=== PATIENT | female | born 1985 | race Caucasian/White ===

== ENCOUNTER 2019-03-30 05:08 | Inpatient (IN) ==
--- NOTE | 2019-03-27 18:08 | History & Physical Report ---
Date of Service March 27, 2019 Assessment & Plan (1) H/O section: Plan for repeat low transverse section. We will additionally perform bilateral tubal ligation. I have consented the patient in the office, reviewed risks benefits and alternatives. We discussed risk of failure of tubal ligation of 2-3 per thousand. Discussed tubal regret, risk of ectopic . Risks of surgery were discussed, including bleeding, scarring, infection, damage to surrounding tissues including baby. Possibility of need for blood transfusion. Risk of pulmonary complications and blood clots. (2) : History of Present Illness Chief Complaint: Repeat section Primary Care Provider: NO PCP Patient is a 33-year-old -0-1-1 with estimated delivery date 04/06/2019. She has a history of section x1, and desire for repeat. She is Rh-, and received RhoGam 01/22/2019. otherwise complicated by transfer of care at 32 weeks from [place]. Her cystic fibrosis and spinal muscular atrophy testing were negative, and cell free DNA was negative. She is surgical history of section, hernia repair, laparoscopy, wisdom teeth removal.. Allergies Allergy/AdvReac Type Severity Reaction Status Date / Time promethazine [From Phenergan] Allergy Intermediate stiff Verified 03/20/19 08:54 joints Home Medications Home Medications Medication Instructions Recorded Confirmed Type cetirizine 10 mg tablet 10 mg PO DAILY 02/11/19 03/27/19 History prenat.vits,gala,zrk-xjaz-nuuhx 1 tab PO DAILY 02/11/19 03/27/19 History ondansetron HCl 4 mg tablet 4 mg PO TID PRN 5 Days #20 tab 03/20/19 03/27/19 Rx Patient History Medical History (Updated 02/11/19 @ 13:46 by Eusebia [place] Social) Anxiety Asthma Hx of endometriosis Ovarian cyst Pain in female genitalia on intercourse Pelvic pain Surgical History (Updated 02/11/19 @ 13:55 by Eusebia Stewart[employer] Social) H/O section H/O hernia repair H/O laparoscopy [place] teeth removed Family History (Updated 02/11/19 @ 13:54 by Eusebia Silk) Father Diabetes Dyslipidemia Hypertension Mother Ovarian cyst Sister Ovarian cyst Grandmother (Maternal) Ovarian cyst Grandfather (Paternal) Drinking problem Social History (Updated 02/11/19 @ 13:33 by Eusebia Spotts) marital status: marital status details: Bertram (34) [phone] Current Living Situation: Spouse and Family Current Living Situation Comment: lives with and children, no pets 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 Nothing on palms and soles. Constitutional: WD/WN, vitals as above Respiratory: normal respiratory effort, lungs clear to auscultation no respiratory distress Cardiovascular: Rate/Rhythm: regular rate and regular rhythm Gastrointestinal (Abdomen): Inspection/Auscultation: abdomen normal to inspection Percussion/Palpation: abdomen soft; abdomen nontender Gravid. No s/s chorio or abruption. Skin: no rashes, warm and dry Psychiatric: A+Ox3, euthymic affect Monitoring External Monitor heart rate positive by Doppler in office. Please see labor and delivery charting for up to date heart tracing.
[2019-03-30] MEDS ORDERED: LACTATED RINGER'S 1,000 ML IV SCH ×2 (05:15→10:00)
[2019-03-30] MEDS ORDERED: PATIENT'S HEIGHT AND/OR WEIGHT NEEDED SCH (05:15)
[2019-03-30] MEDS ORDERED: CEFAZOLIN 2,000 MG in SYRINGE 0 ML IV SCH (06:00)
[2019-03-30] MEDS ORDERED: CITRIC ACID/SODIUM CITRATE 15 ML UDC PO SCH (06:00)
[2019-03-30 07:08] LABS: Hematocrit (blood only) 32.5 % (37-47); Hemoglobin 10.8 g/dL (12.0-16.0); Mean Corpuscular Hemoglobin 29.3 pg (25-34); Mean Corpuscular Hgb Conc 33.2 g/dL (32-36); Mean Corpuscular Volume 88.3 fL (80-100); RDW Coefficient of Variation 14.5 % (11.5-14.5); Red Blood Count 3.68 M/uL (4.2-5.4); White Blood Count 9.29 K/uL (4.8-10.8)
--- NOTE | 2019-03-30 07:11 | Anesthesiology Consultation ---
Date of Service March 30, 2019 Assessment & Plan Chart Review Chart Review: Acceptable Risk for Surgery and Patient NOT seen in Pre Admission Testing Consults Requested none ASA ASA2 Proposed Anesthesia Anesthesia Type: General and Spinal Risk / Benefits Reviewed With: PT / POA / Parent / Guardian, Accepts Plan and Informed Consent Obtained History Surgery Operation Date: 03/30/19 07:30 Proposed Procedures p Section in [place] - Lawanda Farris DO s Post Tubal Ligation Labor & Deliv - Lawanda Farris DO Height/Weight Height: 5 ft 2 in Weight: 64.864 kg Allergies Allergy/AdvReac Type Severity Reaction Status Date / Time promethazine [From Phenergan] Allergy Intermediate stiff Verified 03/30/19 05:25 joints Medications Home Medications Medication Instructions Recorded Confirmed Last Taken cetirizine 10 mg tablet 10 mg PO DAILY 02/11/19 03/30/19 Unknown prenat.vits,agla,met-mhut-bogfl 1 tab PO DAILY 02/11/19 03/30/19 03/29/19 ondansetron HCl 4 mg tablet 4 mg PO TID PRN 5 Days #20 tab 03/20/19 03/30/19 03/30/19 Active Medications Generic Name Dose Route Start Last Admin Trade Name Freq PRN Reason Stop Dose Admin Lactated Ringer's 1,000 mls @ 999 mls/hr 03/30/19 05:15 03/30/19 06:39 Lr IV 03/30/19 12:00 Infused .Q1H1M EARL Infusion NPO Date Last Intake of Fluids: 03/29/19 Time Last Intake of Fluids: 23:30 Date Last Intake of Solids: 03/29/19 Time Last Intake of Solids: 22:00 Past Medical History Medical History Anxiety no current meds Asthma childhood Hx of endometriosis Ovarian cyst Pain in female genitalia on intercourse Pelvic pain Spontaneous 2012 Exercise / Class Metabolic Activity II 4-5 Yardwork/Stairs/Walk up hill Past Family History Family History Father Diabetes Dyslipidemia Hypertension Mother Ovarian cyst Sister Ovarian cyst Grandmother (Maternal) Ovarian cyst Grandfather (Paternal) Drinking problem Past Surgical History Surgical History H/O section 09/09/2009 [facility], PROM and [facility] H/O hernia repair age 13 H/O laparoscopy age 18 History of colposcopy 2008, hx of abnormal pap [place] teeth removed 2011 Past Anesthesia History No Hx of Anesthesia Complications and No Family Hx of Anesthesia Complications History of PONV No Hx of Motion Sickness and History of PONV Social History Smoking Status: Never smoker Hx Alcohol Use: No Hx Substance Use: No Physical Exam Vital Signs Last Vital Signs Temp 36.5 C 03/30/19 05:27 Pulse 84 03/30/19 05:27 Resp 20 03/30/19 05:27 BP 118/65 03/30/19 05:27 Constitutional not obese ENMT Mouth: + small oral opening; no dentition abnormality Thyromental Distance: < 3.5 Finger Breadths Mallampati Class: II Neck normal visual inspection and trachea midline; neck extension not limited Respiratory normal respiratory effort Auscultation: lungs clear to auscultation bilaterally Cardiovascular Rate/Rhythm: regular rate and regular rhythm Heart Sounds: no murmur Vessels: no carotid bruit Musculoskeletal Spine: lumbar spine normal to inspection; normal cervical ROM Neurologic moves all extremities Motor/Sensory: no sensory deficit Psychiatric Orientation: alert and oriented x 3
[2019-03-30 07:12] LABS: Basophils # (auto) 0.01 K/uL (0-0.2); Basophils % (auto) 0.1 %; Eosinophils # (auto) 0.09 K/uL (0-0.5); Immature Granulocytes # (auto) 0.03 K/uL (0.00-0.02); Immature Granulocytes % (auto) 0.3 %; Lymphocytes # (auto) 1.46 K/uL (1.2-3.4); Lymphocytes % (auto) 15.7 %; Mean Platelet Volume 12.5 fL (7.4-10.4); Monocytes # (auto) 0.76 K/uL (0.11-0.59); Monocytes % (auto) 8.2 %; Neutrophils # (auto) 6.94 K/uL (1.4-6.5); Neutrophils % (auto) 74.7 %; Platelet Count 89 K/uL (130-400); Platelet Estimate Decreased (Normal)
[2019-03-30] MEDS ORDERED: OXYTOCIN 10 UNITS/ML VIAL ONE ×2 (07:16→08:44)
[2019-03-30] MEDS ORDERED: fentaNYL citrate 100 MCG/2 ML VIAL ONE (07:18)
[2019-03-30] MEDS ORDERED: MoRPHine SULFATE PF 1 MG/ML 10 ML AMP/VIAL ONE (07:19)
--- NOTE | 2019-03-30 07:31 | History & Physical Bridge Note ---
Date of Service March 30, 2019 History & Physical Bridge Note I have examined the patient, reviewed the History & Physical and in the interval since the performance of the History & Physical I have noted the following changes of clinical significance: no changes noted
[2019-03-30] MEDS ORDERED: ONDANSETRON INJ 2 MG/ML 2 ML VIAL ONE (08:37)
[2019-03-30] MEDS ORDERED: DEXAMETHASONE SOD INJ 4 MG/ML VIAL ONE (08:38)
[2019-03-30] MEDS ORDERED: PHENYLEPHRINE 100MCG/ML 5ML SYR ONE (08:44)
[2019-03-30] MEDS ORDERED: MIDAZOLAM HCL 1 MG/ML 2ML VIAL ONE ×2 (09:08→09:19)
[2019-03-30 09:10] LABS: Base Excess Cord Arterial Bld -1.7 mEq/L (-9-1.8); CO2 Cord Arterial Blood 50 mmHg (39.1-73.5); HCO3 Cord Arterial Blood 25 mmol/L (19.7-28.5); pH Cord Arterial Blood 7.32 (7.1-7.38)
[2019-03-30 09:15] LABS: Base Excess Cord Venous Blood -0.6 mEq/L (-7.7-1.9); Cord Venous Blood HCO3 24 mmol/L (18.4-26.8); Cord Venous Blood PCO2 39 mmHg (30.4-57.2); Cord Venous Blood PO2 23 mmHg (14.1-43.3); Oxygen Sat Cord Arterial Blood < 60.0 % (<60)
[2019-03-30 09:16] LABS: O2 Saturation Cord Venous Bld < 60.0 % (<68)
[2019-03-30] MEDS ORDERED: ONDANSETRON INJ 2 MG/ML 2 ML VIAL IV PRN ×2 (09:44→10:00)
[2019-03-30] MEDS ORDERED: NALOXONE HCL 0.08 MG in SYRINGE 1.8 ML IV PRN (09:44)
[2019-03-30] MEDS ORDERED: ePHEDrine sulfate 50 MG/ML AMP IV PRN (09:44)
[2019-03-30] MEDS ORDERED: NALOXONE HCL 0.4 MG/1 ML VIAL/CARP IV PRN (09:44)
[2019-03-30] MEDS ORDERED: LACTATED RINGER'S 500 ML IV PRN (09:44)
[2019-03-30] MEDS ORDERED: NALBUPHINE HCL INJ 10 MG/ML AMP IV PRN (09:44)
[2019-03-30] MEDS ORDERED: MoRPHine SULFATE PF 1 MG/ML 10 ML AMP/VIAL INT SPINAL ONE (09:44)
[2019-03-30] MEDS ORDERED: NALOXONE HCL 1 MG in SODIUM CHLORIDE 0.9% 1000ML 1,000 ML IV PRN (09:44)
[2019-03-30] MEDS ORDERED: DiphenhydrAMINE HCL 50 MG/ML VIAL IV PRN (09:44)
[2019-03-30] MEDS ORDERED: NO NARCOTICS OR SEDATIVES SCH (09:45)
[2019-03-30] MEDS ORDERED: SODIUM CHLORIDE 0.9% 1000ML 1,000 ML IV SCH (09:45)
[2019-03-30] MEDS ORDERED: DC INTRASPINAL MORPHINE SCH (09:45)
--- NOTE | 2019-03-30 09:53 | Operative Report ---
PG Post Operative Report Pre & Post Diagnosis Operation Date: 03/30/19 07:30 Pre-Op Diagnosis: intrauterine history of section desires permanent sterilization Post-Op Diagnosis: same I identified the patient and participated in the time-out.: Yes Procedure Operation Date: 03/30/19 07:30 Actual Procedures p Repeat low transverse Section for viable male at 0824 - Lawanda Farris DO s Post Tubal Ligation Labor & Deliv(Bilateral) - Lawanda Farris DO Surgeon Lawanda Farris DO Transportation [employer] Internship Gutierrez Hoffman MD Estimated Blood Loss 700 Findings Consistent with Post-Op Diagnosis Viable male , Apgars . Normal appearing tubes/ovaries. Uterus with thin wall at site of prior hysterotomy, with a 3cm blood clot in perivesical space. Specimens Placenta, cord gas, cord blood Drains reyes, clear yellow Anesthesia Type Spinal Complications none Disposition Accompanied Patient To Recovery: Yes Disposition: L&D Indications 33yo @ 39 0/7, h/o x 1, desire for repeat. Desire for sterilization. Description of Procedure The patient was seen in the preoperative holding area, where risks benefits and alternatives to surgery reviewed. All questions were answered. She elected to proceed with the case. She had previously signed informed consent under no duress in the office. She was taken to the operating room, spinal anesthesia was given. She was prepared and draped in the usual sterile fashion in the supine position with a leftward tilt. 2 g of Ancef was infused prior to incision. Timeout was confirmed. Through her prior Pfannenstiel incision, the skin incision was made with a scalpel, and carried through to the underlying layer of fascia. This was nicked at midline, and this incision was extended bilaterally sharply and bluntly. The superior aspect of the fascial incision was grasped with [place] clamps x2, elevated off the underlying rectus abdominis muscles, and dissected bluntly and sharply. In a similar fashion, the inferior aspect fascial incision was dissected. The rectus abdominis muscles were midline using a hemostat, and the peritoneum was entered bluntly digitally. This incision was extended bilaterally. The bladder blade was placed. At this time, a blood clot located in the bladder flap was visualized. Therefore, the hysterotomy incision was made superior to this on the uterus. The hysterotomy incision was made with a scalpel, and extended bilaterally bluntly. There was clear amniotic fluid. The infant was delivered from a cephalic presentation. The head delivered, followed by anterior than posterior shoulder, followed by body. A cry was heard on the field, the cord was doubly clamped and cut and the baby was handed off to the waiting implementation engineer. The placenta was delivered spontaneously intact. The uterus was exteriorized, and cleared of all clots and debris. The prior hysterotomy incision scar was inspected, found to be intact but thin. The blood clot that had been seen in the perivesical space, appeared to be hemostatic. The hysterotomy incision was reapproximated using 0 Vicryl in a running locked stitch. Another layer of the same suture was used to imbricate this incision. Multiple yxryxd-ha-rmulo sutures were used at the left hysterotomy apex to obtain hemostasis. Additionally, on the anterior surface on the right side of the uterus, there was a bleeding sinus approximately 1 cm superior to the hysterotomy incision. This required multiple vwbysf-st-mwmlo sutures of 0 Vicryl, 2-0 Vicryl, and 0 Monocryl to obtain hemostasis. The posterior uterus was evaluated and found to be normal. The uterus was placed back in the abdomen, a piece of Gelfoam was placed across the anterior aspect of the uterus and the hysterotomy. Excellent hemostasis was observed at the time of placing uterus into the abdomen. Gutters were cleared of clots and debris. The fascial incision was reapproximated using 0 Vicryl in a running stitch. The subcutaneous tissue was irrigated and reapproximated using a running stitch of 2-0 plain gut suture. The skin was reapproximated using 4-0 Vicryl in a running subcuticular stitch. Steri-Strips and a bandage were applied. Patient tolerated the procedure well. Sponge, instrument, needle counts were correct x2 at the conclusion of the case. I attest to the content of the Intraoperative Record and any orders documented therein. Any exceptions are noted below.
[2019-03-30] MEDS ORDERED: HYDROCORTISONE ACETATE 25 MG SUPP PR PRN (10:00)
[2019-03-30] MEDS ORDERED: SUPERCREAM 0.870% 15 GM JAR EXT PRN (10:00)
[2019-03-30] MEDS ORDERED: MAGNESIUM HYDROXIDE SUSP 30 ML UDC PO PRN (10:00)
[2019-03-30] MEDS ORDERED: SENNA 8.6 MG TAB PO PRN (10:00)
[2019-03-30] MEDS ORDERED: OXYTOCIN 30 UNITS in LACTATED RINGER'S 1,000 ML IV SCH (10:00)
[2019-03-30] MEDS ORDERED: BENZOCAINE 20% AER SPR 82.5 GM CAN EXT PRN (10:00)
[2019-03-30] MEDS ORDERED: DIPHTHERIA/TETANUS/PERTUSSIS 0.5 ML SYR/VIAL IM ONE (10:00)
--- NOTE | 2019-03-30 11:27 | Anesthesiology Progress Note ---
Date of Service March 30, 2019 Anesthesia Post Procedure Vital Signs Vital Signs: Temp Pulse Resp BP Pulse Ox 03/30/19 11:24 94 H 97/68 L 98 03/30/19 11:19 88 98 03/30/19 11:14 91 H 98 03/30/19 11:13 92 H 106/68 03/30/19 11:09 94 H 98 03/30/19 11:04 91 H 98 03/30/19 11:03 87 113/57 L 03/30/19 10:59 91 H 99 03/30/19 10:54 87 115/59 L 98 03/30/19 10:49 88 123/58 L 98 03/30/19 10:45 18 03/30/19 10:44 86 98 03/30/19 10:39 91 H 99 03/30/19 10:34 91 H 119/53 L 99 03/30/19 10:29 84 99 03/30/19 10:25 81 132/57 L 03/30/19 10:24 85 99 03/30/19 10:19 83 100 03/30/19 10:15 18 03/30/19 10:14 86 105/69 99 03/30/19 10:09 78 99 03/30/19 10:05 20 03/30/19 10:04 75 111/62 100 03/30/19 09:59 69 97 03/30/19 09:55 20 03/30/19 09:54 67 109/69 100 03/30/19 09:49 73 100 03/30/19 09:45 36.3 C L 20 03/30/19 09:44 70 102/60 100 03/30/19 05:27 36.5 C 84 20 118/65 03/30/19 05:22 84 118/65 Pain Intensity Abdomen: Pain Intensity: 3 Transfer of Care Handoff Completed per policy Notes Mental Status: alert / awake / arousable Patient Amnestic to Procedure: Yes Nausea / Vomiting: adequately controlled Pain: adequately controlled Airway Patency, RR, SpO2: stable & adequate BP & HR: stable & adequate Hydration State: stable & adequate Neuraxial Anesthesia: was administered and sensory block is resolving Anesthetic Complications: no major complications apparent
[2019-03-30] MEDS: SIMETHICONE 80 MG CHEW PO SCH ×2 (14:00→20:23)
[2019-03-30] MEDS: KETOROLAC 30 MG/ML VIAL IV PRN ×2 (14:06→20:23)
[2019-03-30] MEDS: DOCUSATE SODIUM 100 MG CAP PO SCH (20:23)
[2019-03-31] MEDS: KETOROLAC 30 MG/ML VIAL IV PRN (02:42)
[2019-03-31] MEDS ORDERED: DiphenhydrAMINE HCL 50 MG/ML VIAL IV PRN (03:45)
[2019-03-31] MEDS ORDERED: KETOROLAC 30 MG/ML VIAL IV PRN (03:45)
[2019-03-31] MEDS ORDERED: ONDANSETRON INJ 2 MG/ML 2 ML VIAL IV PRN (03:45)
[2019-03-31] MEDS: OXYCODONE/ACETAMINOPHEN 5mg/325mg TAB PO PRN ×4 (06:03→19:59)
[2019-03-31] MEDS: IBUPROFEN 600 MG TAB PO PRN ×4 (06:04→20:00)
--- NOTE | 2019-03-31 07:16 | Obstetrical Progress Note ---
Date of Service March 31, 2019 POD #1 Feels a little uncomfortable, but otherwise well. Minimla bleeding. No ext pain Assessment & Plan (1) H/O section: Ambulate, await CBC. Catheter out Physical Exam Constitutional WD/WN, vitals as above Respiratory normal respiratory effort Gastrointestinal (Abdomen) Incision C/D/I Ext exam neg Results & Data Vital Signs (Past 12 Hours) Vital Signs Temp Pulse Resp BP Pulse Ox 03/31/19 03:44 98.4 F 83 18 89/55 L 03/31/19 03:15 14 96 03/31/19 02:40 18 97 03/31/19 01:45 16 96 03/31/19 00:10 99.0 F 86 18 93/63 L 97 03/30/19 23:15 18 97 03/30/19 22:35 17 97 03/30/19 21:35 15 98 03/30/19 20:35 17 97 03/30/19 19:35 98.6 F 88 16 93/57 L 98
--- NOTE | 2019-03-31 07:49 | Anesthesiology Progress Note ---
Date of Service March 31, 2019 Anesthesia Post Procedure Vital Signs Vital Signs: Temp Pulse Pulse Resp BP BP Pulse Ox 03/31/19 03:44 36.9 C 83 18 89/55 L 03/31/19 03:15 14 96 03/31/19 02:40 18 97 03/31/19 01:45 16 96 03/31/19 00:10 37.2 C 86 18 93/63 L 97 03/30/19 23:15 18 97 03/30/19 22:35 17 97 03/30/19 21:35 15 98 03/30/19 20:35 17 97 03/30/19 19:35 37.0 C 88 16 93/57 L 98 03/30/19 17:47 36.9 C 80 20 92/59 L 100 03/30/19 16:45 20 100 03/30/19 15:45 20 98 03/30/19 14:30 20 100 03/30/19 13:30 37.1 C 97 H 20 100/62 100 03/30/19 12:30 37.1 C 97 H 20 100/62 100 03/30/19 12:19 96 H 98 03/30/19 12:14 96 H 98 03/30/19 12:09 96 H 97 03/30/19 12:04 93 H 99/63 L 98 03/30/19 11:59 95 H 98 03/30/19 11:54 98 H 97 03/30/19 11:53 97 H 99/64 L 03/30/19 11:49 97 H 98 03/30/19 11:45 37.0 C 20 03/30/19 11:44 91 H 98 03/30/19 11:43 80 101/59 L 03/30/19 11:39 87 97 03/30/19 11:34 93 H 98 03/30/19 11:33 92 H 99/62 L 03/30/19 11:29 90 98 03/30/19 11:24 94 H 97/68 L 98 03/30/19 11:19 88 98 03/30/19 11:15 20 03/30/19 11:14 91 H 98 03/30/19 11:13 92 H 106/68 03/30/19 11:09 94 H 98 03/30/19 11:04 91 H 98 03/30/19 11:03 87 113/57 L 03/30/19 10:59 91 H 99 03/30/19 10:54 87 115/59 L 98 03/30/19 10:49 88 123/58 L 98 03/30/19 10:45 18 03/30/19 10:44 86 98 03/30/19 10:39 91 H 99 03/30/19 10:34 91 H 119/53 L 99 03/30/19 10:29 84 99 03/30/19 10:25 81 132/57 L 03/30/19 10:24 85 99 03/30/19 10:19 83 100 03/30/19 10:15 18 03/30/19 10:14 86 105/69 99 03/30/19 10:09 78 99 03/30/19 10:05 20 03/30/19 10:04 75 111/62 100 03/30/19 09:59 69 97 03/30/19 09:55 20 03/30/19 09:54 67 109/69 100 03/30/19 09:49 73 100 03/30/19 09:45 36.3 C L 20 03/30/19 09:44 70 102/60 100 Pain Intensity Abdomen: Pain Intensity: 4 Transfer of Care Handoff Completed per policy Notes Mental Status: alert / awake / arousable Patient Amnestic to Procedure: Yes Nausea / Vomiting: adequately controlled Pain: adequately controlled Airway Patency, RR, SpO2: stable & adequate BP & HR: stable & adequate Hydration State: stable & adequate Neuraxial Anesthesia: was administered and sensory block is resolving Anesthetic Complications: no major complications apparent and Pt Satisfied with anesthetic care
[2019-03-31 08:25] LABS: Hemoglobin 8.8 g/dL (12.0-16.0); Mean Corpuscular Hgb Conc 33.8 g/dL (32-36); Mean Corpuscular Volume 88.7 fL (80-100); RDW Coefficient of Variation 14.4 % (11.5-14.5); Red Blood Count 2.93 M/uL (4.2-5.4)
[2019-03-31 08:27] LABS: Mean Platelet Volume 12.1 fL (7.4-10.4); Platelet Count 80 K/uL (130-400)
[2019-03-31 08:28] LABS: Eosinophils # (auto) 0.05 K/uL (0-0.5); Eosinophils % (auto) 0.4 %; Immature Granulocytes # (auto) 0.05 K/uL (0.00-0.02); Immature Granulocytes % (auto) 0.4 %; Lymphocytes # (auto) 1.11 K/uL (1.2-3.4); Lymphocytes % (auto) 9.3 %; Monocytes # (auto) 0.79 K/uL (0.11-0.59); Monocytes % (auto) 6.6 %; Neutrophils % (auto) 83.3 %; Platelet Estimate Decreased (Normal)
[2019-03-31] MEDS ORDERED: CETIRIZINE HCL 10 MG TABLET PO SCH (09:00)
[2019-03-31] MEDS: SIMETHICONE 80 MG CHEW PO SCH ×4 (09:08→19:59)
[2019-03-31] MEDS: FERROUS SULFATE 325 MG TAB PO SCH (09:08)
[2019-03-31] MEDS: PRENATAL VITAMIN 1 TAB PO SCH (09:08)
[2019-03-31] MEDS: DOCUSATE SODIUM 100 MG CAP PO SCH ×2 (09:08→19:59)
[2019-03-31] MEDS ORDERED: bisacodyL 5 MG TABEC PO SCH (20:00)
[2019-04-01] MEDS: IBUPROFEN 600 MG TAB PO PRN ×3 (00:22→12:34)
[2019-04-01] MEDS: OXYCODONE/ACETAMINOPHEN 5mg/325mg TAB PO PRN ×3 (00:23→12:32)
[2019-04-01 06:36] LABS: Hematocrit (blood only) 26.6 % (37-47); Hemoglobin 8.7 g/dL (12.0-16.0)
[2019-04-01] MEDS: PRENATAL VITAMIN 1 TAB PO SCH (07:20)
[2019-04-01] MEDS: DOCUSATE SODIUM 100 MG CAP PO SCH (07:20)
[2019-04-01] MEDS: SIMETHICONE 80 MG CHEW PO SCH ×2 (07:20→12:32)
[2019-04-01] MEDS: FERROUS SULFATE 325 MG TAB PO SCH (07:20)
--- NOTE | 2019-04-01 08:22 | Obstetrical Progress Note ---
Date of Service April 01, 2019 Assessment & Plan (1) H/O section: s/p c/s. If nausea short lived today, she would like to go home later. Noted we would have to see how things go today. Instructions reviewed. Will need take home pack for tonight. Will send in script. Day #:: 2 Subjective Ambulation: ambulating normally Voiding: no voiding problems Passing Gas:: Yes Diet Tolerance:: regular diet Lochia:: Small Feeding Type:: breast feeding Patient notes nausea this am she believes is secondary to pnv and colace. She notes she has been nauseated throughout the but was feeling a bit better. Nausea new this am . feels a bit lightheaded this am. Physical Exam Constitutional WD/WN, vitals as above Cardiovascular Extremities: + edema (trace); no calf tenderness Gastrointestinal (Abdomen) soft, nt, nd fundus firm/ appropriately tender at u incision--c/d/i with bruising. Psychiatric A+Ox3, euthymic affect Results & Data Vital Signs (Past 12 Hours) Vital Signs Temp Pulse Resp BP Pulse Ox 04/01/19 07:30 36.6 C 81 20 99/64 L 04/01/19 00:10 37.0 C 79 18 101/62 97
[2019-04-01] MEDS ORDERED: bisacodyL 10 MG SUPP PR PRN (09:45)
--- NOTE | 2019-04-04 10:47 | Discharge Summary ---
Date of Service April 04, 2019 Admission HPI Per Admitting Provider Patient is a 33-year-old -0-1-1 with estimated delivery date 04/06/2019. She has a history of section x1, and desire for repeat. She is Rh-, and received RhoGam 01/22/2019. otherwise complicated by transfer of care at 32 weeks from [place]. Her cystic fibrosis and spinal muscular atrophy testing were negative, and cell free DNA was negative. She is surgical history of section, hernia repair, laparoscopy, wisdom teeth removal.. Discharge Data Consultations 03/30/19 05:25 Consult Anesthesiology Stat Procedures Performed Operation Date: 03/30/19 07:30 Actual Procedures p Section for viable male at 0824 - Lawanda Farris DO s Post Tubal Ligation Labor & Delivery(Bilateral) - Lawanda Farris DO Hospital Course (1) Supervision of normal intrauterine in multigravida: section, routine postop recovery, discharged home POD#2. Please see op report for surgical details and progress notes for details of care. Followup in office 6w.
--- NOTE | 2019-04-07 12:40 | Coding Query ---
CODING QUERY To promote full compliance with coding requirements relating to patient care, provider participation is requested in all cases of soft iron inspector uncertainty. Please assist us with the question(s) below: Coding Question(s): The Operative Report on 03/30/19 documents under Actual Procedures that Post Tubal Ligation (bilateral) was to be preformed, however, there is no documentation in the Description of Procedure. Please specify below, regarding the Tubal Ligation procedure. ( ) Tubal Ligation procedure was Not done during this admission ( x ) Tubal Ligation procedure was done during this admission - Please document below to describe the procedure that was done: Description of Procedure: In my dictation of the actual description of the procedure, I did not document at the time of the case the description of the application of the filshie clips. At the time, I was more concerned with the description of the cessation of bleeding at the hysterotomy site. I believe my error in documentation was an oversight. I recall telling the patient over the drape that I had placed the Filshie clips bilaterally. She was also billed for this, and both nursing staff and I placed this in the "procedures" portion of the op report and the nursing report, respectively. Therefore, it is my recollection that I placed bilateral filshie clips on bilateral fallopian tubes during the case, with the Filshie applicator, after initial closure of the hysterotomy incision, and prior to the multiple wmxcre-ic-ssbgf sutures to obtain hemostasis. I will contact the patient to offer her imaging to ensure the clips are properly placed. Physician's Response(s): Thank you Kisha Fleming Principal Diagnosis: "that condition established after study, to be chiefly responsible for occasioning the admission of the patient to the hospital for care." Co-Existing Principal Diagnosis: "when two or more diagnoses equally meet the criteria for principal diagnosis as determined by the circumstances of admission, diagnostic work up, and/or therapy provided, and the Alphabetic Index, Tabular List, or another coding guideline does not provide sequencing direction, any one of the diagnoses may be sequenced first." "When the physician has documented what appears to be a current diagnosis in the body of the record, but has not included the diagnosis in the final diagnostic statement, the physician should be asked whether the diagnosis should be added." (Source Coding [facility] 2 QTR90. p3-4) JAMEL
== END 2019-04-01 14:00 | disposition home or self-care (01) | DRG 784 ==
LOC: 4S1 05:08 → EDSTATUS 08:50 → 4S2 12:50
PROC: M.PPTLD (2019-03-30 07:30)